=== PATIENT | female | born 1970 | race Caucasian/White ===

== ENCOUNTER 2024-03-22 02:15 | Emergency (ER) | payer MEDICARE ==
[2024-03-22 02:35] VITALS: RESP 22; TEMP 98.5; O2SAT 95
[2024-03-22] MEDS ORDERED: BENADRYL 50 MG/ML ONE (02:41)
[2024-03-22] MEDS ORDERED: TYLENOL 325 MG ONE (02:41)
[2024-03-22] MEDS: BENADRYL 50 MG/ML IM ONE (02:42)
[2024-03-22] MEDS: TYLENOL 325 MG PO ONE (02:42)
--- NOTE | 2024-03-22 02:56 | ERPHSYRPT ---
- History of Present Illness Time Seen by Provider: 03/22/24 02:17 Source: patient Exam Limitations: no limitations Patient Subjective Stated Complaint: pt states that she began to get sick on tuesday. pt states it began as a sorethroat and has now turned into a bad headach e Triage Nursing Assessment: pt came into the er via wheelchair; pt is axo x4; pt is tearful, crying, anxious; c/o headache; pt states 6/10 generalized pain; c/o sorethroat; no respiratory distress present; dry hacking cough present; skin PDW; hypertensive; pt denies N/V/D Physician History: Patient is here with generalized malaise, not feeling well. Has been going on 3 to 4 days. Has not seen her PCP. Patient is describing flulike symptoms. Headache, sore throat, cough. Last took 800 mg of ibuprofen approximately 2 hours prior to arrival. Patient describes a frontal headache with no neurological symptoms. States that she does have a history of headaches. She states that this is not the worst headache of her life. Patient is taking PO well. Same number of urinations and defecations. The patient has no signs of altered mental status, nuchal rigidity, signs of meningitis. The patient is up-to-date on all vaccinations. Allergies/Adverse Reactions: No Known Drug Allergies Allergy (Unverified 08/20/14 11:55) Home Medications: Losartan Potassium 25 mg PO DAILY 03/22/24 [History] buPROPion HCL [Bupropion Xl] 150 mg PO DAILY 03/22/24 [History] lisinopriL [Lisinopril] 40 mg PO DAILY 03/22/24 [History] Hx Tetanus, Diphtheria Vaccination/Date Given: No Hx Influenza Vaccination/Date Given: No Hx Pneumococcal Vaccination/Date Given: No Travel Risk - International Travel Have you traveled outside of the country in past 3 weeks: No - Emerging Infectious Disease Are you exhibiting symptoms associated with any current EIDs: Yes Symptoms: Cough: New Onset, Fever, Headaches/Body Aches/ - Past Medical History Pertinent Past Medical History: Yes Cardiac History: Hypertension Psycho-Social History: Anxiety Female Reproductive Disorders: Menstrual Problems - Past Surgical History Past Surgical History: Yes Musculoskeletal: Orthopedic Surgery Other Surgical History: Uterine Ablation, back surgery x2 - Female History Hx Now: No - Social History Smoking Status: Current every day smoker How long have you smoked: 30 Exposure to second hand smoke: Yes Drug Use: none Patient Lives Alone: No ([employer]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) - Social Determinants of Health Will the patient participate in the screening: Yes Do you worry about a steady place to live?: No Do you have any problems with any of the following?: No known problems In the past 12 months,have you had to go without utilities?: No Transportation Issues: No Has anyone in your support network made you feel unsafe?: No Have you or anyone in your house had to go without enough: No - Nursing Vital Signs Nursing Vital Signs: Initial Vital Signs Temperature 98.5 F 03/22/24 02:25 Pulse Rate 90 03/22/24 02:25 Respiratory Rate 22 03/22/24 02:25 Blood Pressure 174/79 03/22/24 02:25 O2 Sat by Pulse Oximetry 95 03/22/24 02:25 Pain Scale Pain Intensity 3 - Physical Exam SpO2 Interpretation: normal SpO2: 95 Comments: 03/22/24 02:57 Review of Systems Constitutional: Negative for fever. HENT: Negative for congestion. Respiratory: Negative for shortness of breath. Cardiovascular: Negative for chest pain. Gastrointestinal: Negative for abdominal pain. Genitourinary: Negative for dysuria. Musculoskeletal: Negative for back pain. Skin: Negative for rash. Neurological: Negative for headaches. Psychiatric/Behavioral: Negative for behavioral problems. All other systems reviewed and are negative. Physical Exam Vitals signs and nursing note reviewed. Constitutional: Appearance: Patient is well-developed. HENT: Head: Normocephalic and atraumatic. Eyes: Conjunctiva/sclera: Conjunctivae normal. Neck: Musculoskeletal: Normal range of motion. Trachea: No tracheal deviation. Cardiovascular: Rate and Rhythm: Normal rate. Heart sounds normal. Pulmonary: Effort: Pulmonary effort is normal. No respiratory distress. Abdominal: Palpations: Abdomen is soft. Musculoskeletal: General: No deformity. Skin: General: Skin is warm and dry. Neurological/ Psychiatric: Mental Status: Mental status, behavior, interaction with environment is appropriate for patient's age and condition Motor: There is no pronator drift of out-stretched arms. Muscle bulk and tone are normal. Strength is full bilaterally. Reflexes: Reflexes are 2+ and symmetric at the biceps, triceps, knees, and ankles. Plantar responses are flexor. Sensory: Light touch sense are intact in bilateral upper and lower extremities. There is no sign of neglect. Coordination: Rapid alternating movements are intact. There is no dysmetria on [id number] and [id number]. There are no abnormal or extraneous movements. Romberg is absent. Gait/Stance: Posture is normal, patient is ambultory without difficuly to bed - Course Nursing assessment & vital signs reviewed: Yes Ordered Tests: Medication Summary Discontinued Medications Generic Name Dose Route Start Last Admin Trade Name Kasia PRN Reason Stop Dose Admin Acetaminophen 975 mg 03/22/24 02:38 03/22/24 02:42 Acetaminophen 325 Mg Tablet PO 03/22/24 02:39 975 mg STAT ONE Administration Acetaminophen Confirm 03/22/24 02:41 Acetaminophen 325 Mg Tablet Administered 03/22/24 02:42 Dose 975 mg .ROUTE .STK-MED ONE Diphenhydramine HCl 25 mg 03/22/24 02:38 03/22/24 02:42 Diphenhydramine Hcl 50 Mg/Ml Vial IM 03/22/24 02:39 25 mg STAT ONE Administration Diphenhydramine HCl Confirm 03/22/24 02:41 Diphenhydramine Hcl 50 Mg/Ml Vial Administered 03/22/24 02:42 Dose 50 mg .ROUTE .STK-MED ONE Droperidol 1.25 mg 03/22/24 02:38 03/22/24 02:43 Droperidol 5 Mg/2 Ml Vial IM 03/22/24 02:39 1.25 mg STAT ONE Administration Droperidol Confirm 03/22/24 02:41 Droperidol 5 Mg/2 Ml Vial Administered 03/22/24 02:42 Dose 5 mg .ROUTE .STK-MED ONE Lab/Rad Data: Laboratory Results 03/22/24 Range/Units 02:49 Influenza Type A Ag NEGATIVE (NEGATIVE) Influenza Type B Ag NEGATIVE (NEGATIVE) RSV (PCR) NEGATIVE (NEGATIVE) SARS-CoV-2 (PCR) NEGATIVE (NEGATIVE) Group A Strep Antibody NOT DETECTED (NEGATIVE) - Progress Progress: improved Progress Note: 03/22/24 02:57 Differential diagnosis includes RSV, COVID, flu, strep throat, other viral illness. Low suspicion for meningitis, encephalitis based on physical exam. No red flag symptoms for headache. Normal neurological exam as above. Plan for symptomatic treatment and reevaluation. 03/22/24 03:41 Patient's headache almost completely resolved with medication above. Patient's viral swabs are negative. Strep swab negative. Plan for discharge home at this point in time. Repeat neurological exam remained negative. Patient overall feeling improved. I believe patient most likely has a viral illness and generalized malaise, headache from this. She will need a neurological reexam with her PCP in 24 to 40 hours. She may return here sooner for any new or changing symptoms. Counseled pt/family regarding: lab results, diagnosis - Departure Departure Disposition: Home Clinical Impression: Viral illness, Headache Condition: Stable Critical Care Time: No Referrals: DOE POWELL NP [Primary Care Provider] - Follow up/PCP as directed Instructions: Headache, Adult (DC)
[2024-03-22 03:15] LABS: Group A Strep NOT DETECTED (NEGATIVE)
[2024-03-22 03:16] VITALS: PULSE 83
[2024-03-22 03:26] LABS: INFLUENZA A NEGATIVE (NEGATIVE); INFLUENZA B NEGATIVE (NEGATIVE); RESPIRATORY SYNCTIAL VIRUS NEGATIVE (NEGATIVE); SARS-CoV-2 Xpert Express NEGATIVE (NEGATIVE)
[2024-03-22 03:40] VITALS: BP 156/83
== END 2024-03-22 03:43 | disposition home or self-care (01) ==
LOC: ED 02:15
DX: R51.9 Headache, unspecified (principal); J02.9 Acute pharyngitis, unspecified; F17.200 Nicotine dependence, unspecified, uncomplicated; B34.9 Viral infection, unspecified
CPT/HCPCS: 0241U; 87651; 96372; 99284; 99283; J1200; A9270-GY